=== PATIENT | male | born 1970 | race Two or more races ===

== ENCOUNTER 2024-02-01 00:31 | Emergency (ER) | payer MEDICARE, MEDICAID, SELFPAY ==
[2024-02-01 00:33] VITALS: BMI 40.1
[2024-02-01 00:40] VITALS: BP 173/93; PULSE 63; RESP 18; TEMP 36.6; O2SAT 95
[2024-02-01] MEDS: HYDROcodone/APAP 10/325 TAB PO (00:57)
--- NOTE | 2024-02-01 00:57 | PD.EDNECK ---
ED Neck Injury Pain RME/HPI General Chief Complaint: Neck Pain/Injury Stated Complaint: Neck Pain for A couple of weeks Time Seen by Provider: 02/01/24 00:48 Arrival date/time: 02/01/24 00:31 53M with history of previous neck surgery with multiple screws, presents to ED requesting pain meds. Patient does not want RX or diagnostics. Patient takes Falcon 10s at home but ran out as he is currently traveling. He is staying at the [address] and walked here. Limitations: no limitations Related Data Allergies Allergy/AdvReac Type Severity Reaction Status Date / Time No Known Allergies Allergy Verified 02/01/24 00:35 Review of Systems Review of Systems Systems Reviewed: All systems reviewed, normal except as documented Constitutional Constitutional: Reports system reviewed and no additional complaints, except as documented, Denies fever(s) and Denies headache(s) ENT Ears, Nose, Mouth, and Throat: Denies disequilibrium, Denies headache(s) and Reports neck pain Cardiovascular Cardiovascular: Reports system reviewed and no additional complaints, except as documented, Denies chest pain and Denies dyspnea Respiratory Respiratory: Reports system reviewed and no additional complaints, except as documented, Denies cough and Denies dyspnea Gastrointestinal Gastrointestinal: Reports system reviewed and no additional complaints, except as documented, Denies abdominal pain, Denies nausea and Denies vomiting Musculoskeletal Musculoskeletal: Reports as per HPI and Reports neck pain Neurologic Neurologic: Reports system reviewed and no additional complaints, except as documented, Denies confusion, Denies disequilibrium and Denies headache(s) Psychiatric Psychiatric: Denies confusion Past Medical History Social History SMOKING STATUS: Former smoker ED Exam General Limitations: Present no limitations General appearance: Present alert and in no apparent distress Head Head exam: Present atraumatic Eye Eye exam: Present normal appearance, PERRL and EOMI ENT ENT exam: Present normal exam, normal oropharynx and mucous membranes moist Neck Neck exam: Present normal inspection, full ROM and trachea midline Chest Chest inspection: Present normal inspection and symmetric chest wall rise Respiratory Respiratory exam: Present normal lung sounds bilaterally Cardiovascular Cardiovascular exam: Present regular rate, normal rhythm and normal heart sounds Abdominal Exam Abdominal exam: Present soft and normal bowel sounds Extremities Exam Extremities exam: Present normal inspection and full ROM Back Exam Back exam: Present normal inspection and full ROM Neurological Exam Neurological exam: Present alert, oriented X3 and CN II-XII intact Psychiatric Psychiatric exam: Present normal affect and normal mood Skin Skin exam: Present warm, dry, intact and normal color Course Quality Measures none Orders Category Date Time Status HYDROcodone/APAP 10/325 [Falcon 10/325] Med 02/01/24 00:48 Discontinued 1 tab PO X1 ONE Vital Signs Vital signs: Vital Signs Temperature 97.8 F 02/01/24 00:40 Pulse Rate 63 02/01/24 00:40 Respiratory Rate 18 02/01/24 00:40 Blood Pressure 173/93 H 02/01/24 00:40 Pulse Oximetry (%) 95 02/01/24 00:40 Oxygen Delivery Method Room Air 02/01/24 00:40 O2 at 95% on RA and WNLs Neck Pain MDM Narrative MDM Narrative:: 53M with history of previous neck surgery with multiple screws, presents to ED requesting pain meds. Patient does not want RX or diagnostics. Patient takes Falcon 10s at home but ran out as he is currently traveling. He is staying at the [address] and walked here. Physical exam reveals no neck tenderness. ROM intact, but painful. Patient is afebrile, calm, and alert. Med given. Patient data External records reviewed:: [facility] [place] previous records Clinical information provided by:: patient Social determinants that could affect healthcare access:: none Patient has the following chronic illnesses:: neck surgery How is presenting disease/condition affected by chronic disease/condition?: exacerbated by Evaluation data The following diagnostics were reviewed and interpreted by me:: other (specify) (none) Lab and/or radiology exams considered but not ordered:: not ordered Interpretation Summary: n/a Medications / Prescriptions Medications or Prescriptions considered but not ordered:: ordered Medication administrations:: Medication Administration History Discontinued Medications Hydrocodone Bitart/Acetaminophen (Hydrocodone/Apap 10/325 Tab) 1 tab PO X1 ONE Stop: 02/01/24 00:49 above Consultations Consultation(s) initiated? (list below): No Diagnosis Neck Differential Diagnosis: disc disorder of cervical region, whiplash injury to neck, closed subluxation of cervical spine, fracture of cervical spine without lesion of spinal cord, cervical radiculopathy, vertebral artery dissection, torticollis, cervical spondylosis, strain of neck muscle and other (chronic neck pain) Most likely diagnosis given after review of the tests above:: chronic neck pain Admission Indicated Admission indicated?: not indicated Admission Request Was there a request for admission?: No Disposition Plan Disposition Plan: Discharge Discharge Attestation Discharge Attestation: The patient and all family members were given an opportunity to ask questions and understood the discharge instructions. Discharge instructions specifically effects, indications for sooner follow up or return to the emergency department, and the expected course of current diagnosis. Patient condition: Stable Discharge Plan Plan Patient Disposition: HOME (Self Care) Disposition Comment: Stable Problem List Clinical Impression: Chronic neck pain Patient/Caregiver Discharge Instructions Additional Instructions: Please follow-up with PCP within 24-48 hours and return immediately if symptoms worsen. If problem persists, recommend outpatient PT and/or MRI follow-up. In the meantime, rest, use ice/heat, and/or compression. Print Language: Mongolian Stand Alone Forms: Patient Portal Info Letter CHARITY/ARISTIDES Supervising Physician CHARITY/ARISTIDES Supervising Physician: Dr. Woods
== END 2024-02-01 01:01 | disposition home or self-care (01) ==
LOC: SERX 01:18
PROVIDERS: Emergency Provider Emergency Medicine
DX: M54.2 Cervicalgia (principal); G89.29 Other chronic pain
CPT/HCPCS: 99283; A9270